=== PATIENT | female | born 1995 | race Caucasian/White ===

== ENCOUNTER → 2019-03-26 | Outpatient (CLI) | payer OTHER ==
[~2019-03-26] MED LIST: AZAT50TA2 PO; BIOT1TAB PO; D 50CAP PO; ESCI10TA2 PO; HYDR200T3 PO; NAPR-885 PO; OXYC-517 PO; PANT40TA3 PO
--- NOTE | 2019-03-26 11:40 | PFTRPT ---
Height: 65.00 Inches Weight: 241.00 Lbs BSA: 2.14 Diagnosis: LYMPHOMA DATE OF PROCEDURE: 03/26/2019 ORDERED BY: Dr. Lupe Gibson Spirometry: Pre and post bronchodilator study of excellent technical quality. Forced vital capacity reduced. FEV1 in proportion. Obstructive index is, therefore, normal. Flow Volume Loop: Expiratory limb of the flow volume loop does suggest some nonspecific flow rate limitation. No bronchodilator response identified. Lung Volumes: Total lung capacity mildly reduced. Residual volume suggests a degree of air trapping concomitantly. Diffusing Capacity: Diffusing capacity, although reduced, is appropriate for alveolar volume. Hemoglobin: No hemoglobin available for correction. Airway Mechanics: Airway resistance and conductance are normal. IMPRESSION: Mild restrictive ventilatory impairment with concomitant air trapping. Please correlate clinically. MTDD
--- NOTE | 2019-03-27 08:17 | ECHO ---
DATE OF SERVICE: 03/26/2019 DATE OF : 1995 AGE: 23 REFERRING PROVIDER: Dr. Lupe Gibson PATIENT LOCATION: Outpatient. REASON FOR THE ECHOCARDIOGRAM: Chemotherapy drug monitoring. History of Hodgkin's lymphoma. 2D MEASUREMENTS: IVS - 1.0 cm LV - 4.7 cm LVPW - 1.1 cm LA - 3.6 cm Aorta - 2.6 cm DOPPLER MEASUREMENTS: Peak velocity across the aortic valve 1.6 m/s Peak velocity across the LVOT 1.1 m/s Peak gradient across the aortic valve 10 mmHg Mean gradient across the aortic valve 5 mmHg Mitral E 1.3 Mitral A 0.67 with a ratio of 2.1 Maximum tricuspid valve velocity 2.5 m/s 2D COMMENTS: 1. Normal left ventricular size, wall thickness, and normal global left ventricular systolic function. The estimated ventricular systolic ejection fraction is 60-65%. 2. Normal left atrium. Normal right atrium and right ventricle. 3. The atrial septum appeared to be normal without evidence of defect or shunt. 4. Normal aortic root. 5. No pericardial effusion seen. 6. Minimally calcified aortic valve with normal leaflet excursion. Mildly calcified mitral annulus with normal anterior mitral valve leaflet motion. Normal tricuspid valve and pulmonic valve. The proximal pulmonary artery branches also appear to be normal. 7. The inferior vena cava was not well visualized. Doppler, it detects trace aortic radiation, trace mitral regurgitation, mild tricuspid radiation, and trace pulmonic regurgitation. The calculated pulmonary artery systolic pressure varies between 30-40 mmHg. Assessment of the left ventricular diastolic function appeared to be normal. IMPRESSION: 1. Normal global left ventricular systolic and diastolic function. 2. Aortic valve sclerosis with trace aortic radiation and trivial aortic stenosis. 3. Mitral annulus calcification with trace mitral regurgitation. 4. Mild tricuspid regurgitation with mild pulmonary hypertension. 5. Trace pulmonic regurgitation. 6. The GLS score was reported to be 19.8%, normal.
== END ==
LOC: M CARPUL 10:47
PROVIDERS: ATTEND Internal Medicine Medical Oncology
DX: C81.90 Hodgkin lymphoma, unspecified, unspecified site (principal)

== ENCOUNTER → 2019-04-02 | Outpatient (CLI) | payer OTHER ==
[~2019-04-02] MED LIST changes: +LIDOCAINE 1% MDV 20ML VIAL As Ordered ONE; +LIDOCAINE 2% MDV 20 ML VIAL As Ordered ONE; +MIDAZOLAM INJ 2 MG/2 ML VIAL (J2250) As Ordered ONE; +ceFAZolin 1GM INJ (J0690 PER 500MG) As Ordered ONE; +diphenhydrAMINE INJ 50MG/ML VIAL (J1200) As Ordered ONE; +fentaNYL 100 MCG/2 ML INJECTION (J3010) As Ordered ONE
--- NOTE | 2019-04-02 09:32 | IPNPDOC ---
Text Note Date of Service The patient was seen on 04/02/19. NOTE I reviewed the H& P from 04/01 and saw the patient. No significant interval change. Pre op diagnosis: lymphoma procedure: port ASA II Malampatti II ISATU: NO problems with sedation: NO NPO: yes Plan: port placement under moderate sedation. VS,Fishbone, I+O VS, Fishbone, I+O Vital Signs Date Time Temp Pulse Resp B/P (MAP) Pulse Ox O2 Delivery O2 Flow Rate FiO2 04/02/19 08:35 97.3 70 16 99 CL ALVAREZ MD Apr 02, 2019 09:32
--- NOTE | 2019-04-02 11:02 | POST-OPPD ---
Postoperative Procedure Note Date Of Procedure: Apr 02, 2019 Time Of Procedure: 11:01 PREOPERATIVE DIAGNOSIS: lymphoma POSTOPERATIVE DIAGNOSIS: lymphoma FINDINGS: patent right IJ PROCEDURE: right IJ port placed. ready to use SURGEON: Lucero ANESTHESIA: moderate sedation ESTIMATED BLOOD LOSS: < 5 ml COMPLICATIONS: none POSTOPERATIVE CONDITION: stable CL ALVAREZ MD Apr 02, 2019 11:02
[2019-04-02 12:47] VITALS: BP 110/62
--- NOTE | 2019-04-02 14:39 | REP ---
IR Ultrasound and fluoroscopy-guided port placement. IR Ultrasound of the neck. IR Moderate sedation. Clinical information: Lymphoma. Physician: Dr. Barker. Procedure: The patient was advised of the benefits, risks, and alternatives of the procedure and informed consent was obtained. A time-out was performed with verification of the patient's name, MRN, site of procedure and type of procedure to be performed. The patient was positioned in the supine position on the angiographic table. The site was prepped and draped in the usual sterile fashion. Moderate sedation was performed by the physician including the presence of an independent trained observer who assisted and monitored the patient's level of consciousness and physiologic status. Following the administration of fentanyl and Versed, the physician spent 45 minutes of continuous face to face time with the patient. Ultrasound of the neck reveals a patent and compressible right internal jugular vein. A business intelligence architect radiograph reveals mediastinal fullness. The neck and anterior chest wall were anesthetized with lidocaine. The right internal jugular vein was accessed using a microintroducer needle by a lateral approach. An 0018 wire was advanced into the superior vena cava, the needle was removed and a microsheath was placed. An Amplatz wire was then passed into the inferior vena cava. An incision at the internal jugular vein access site and anterior chest wall were made using a scalpel. An incision was made at the anterior chest wall. A small pocket was created using a combination of blunt and sharp dissection. A tunneling device was then used to pass the catheter from the pocket to the neck puncture site. An 8-Marshallese Angiodynamics low profile Smart power port was then positioned in the pocket. The catheter was then measured and cut. The introducer sheath was exchanged for a peel-away sheath. The catheter was passed through the peel-away sheath into the internal jugular vein and the peel-away sheath was removed. The port tip was positioned at right atrium. The port was then accessed with a Kee needle. The port flushes and aspirates well. The puncture site in the neck was closed. The chest wall incision was then closed with 2-0 Vicryl and 4-0 Monocryl. Glue and Steri-Strips were applied. A sterile dressing was then applied. The patient tolerated the procedure well and was returned to the PRU in stable condition. Estimated blood loss: <5 ml. Complications: None. Conclusion: 1. Successful placement of an 8-Marshallese angio dynamics low profile Smart power port via the right internal jugular vein. The port is ready for immediate use. 2. Patient to follow up in IR clinic in 2 weeks. Thank you for this referral Electronically Signed by Randa Barker MD 04/02/2019 02:38 P
== END ==
LOC: M IRPRO 08:33
PROVIDERS: ATTEND Radiology Diagnostic Radiology
DX: C85.90 Non-Hodgkin lymphoma, unspecified, unspecified site (principal)

== ENCOUNTER → 2019-04-22 | Outpatient (POV) | payer OTHER ==
[~2019-04-22] VITALS: Ht 165.1 cm; Wt 109.0 kg
[~2019-04-22] MED LIST changes: -LIDOCAINE 1% MDV 20ML VIAL As Ordered ONE; -LIDOCAINE 2% MDV 20 ML VIAL As Ordered ONE; -MIDAZOLAM INJ 2 MG/2 ML VIAL (J2250) As Ordered ONE; -ceFAZolin 1GM INJ (J0690 PER 500MG) As Ordered ONE; -diphenhydrAMINE INJ 50MG/ML VIAL (J1200) As Ordered ONE; -fentaNYL 100 MCG/2 ML INJECTION (J3010) As Ordered ONE
[2019-04-22 08:37] VITALS: BP 124/81
--- NOTE | 2019-04-22 13:52 | IPNPDOC ---
Text Note Date of Service The patient was seen on 04/22/19. NOTE 2 week follow-up post right chest port placement. Patient doing well. Had chemotherapy last week after which she felt exhausted. Port worked well for chemotherapy. No pain, tenderness or drainage from site. No fevers. On examination: Port site looks almost healed. No redness, no discharge. Impression: Port site healing well. No further follow-up unless initiated by patient. Thank you for this referral. VS,Becki, I+O VS, Deannae, I+O Vital Signs Date Time Temp Pulse Resp B/P (MAP) Pulse Ox O2 Delivery O2 Flow Rate FiO2 04/22/19 08:37 97.0 87 16 124/81 (95) 99 CL ALVAREZ MD Apr 22, 2019 13:52
== END ==
LOC: M IRPOV 08:29
PROVIDERS: ATTEND Radiology Diagnostic Radiology
DX: Z45.2 Encounter for adjustment and management of vascular access device (principal)

== ENCOUNTER 2019-05-09 21:08 | Emergency (ER) | payer OTHER ==
[~2019-05-09] VITALS: Ht 165.1 cm; Wt 108.2 kg
[~2019-05-09 21:08] MED LIST changes: +OLAN10TA2 PO; +ONDA8TAB7 PO; +PROC10TA4 PO
[2019-05-09] MEDS ORDERED: NS 1,000 ML IV ONE (21:45)
[2019-05-09] MEDS ORDERED: PROMETHAZINE INJ 25 MG/ML VIAL (J2550) IV ONE (21:45)
[2019-05-09] MEDS ORDERED: ONDANSETRON 4MG/2ML VIAL (J2405) IV ONE ×2 (21:45→23:45)
[2019-05-09] MEDS ORDERED: SODIUM CHLORIDE 0.9% INJ 10 ML SYR IV SCH (21:49)
[2019-05-09 22:31] LABS: BASO % 0.6 % (0.0-1.0); EOS % 0.6 % (0.0-3.0); HEMATOCRIT 29.7 % (36.0-47.0); HEMOGLOBIN 9.8 g/dl (12.0-15.5); LYMPH # 0.8 10^3/uL (1.5-6.5); LYMPH % 44.7 % (24.0-44.0); MEAN CORPUSCULAR HEMOGLOBIN 27.7 pg (27.0-33.0); MEAN CORPUSCULAR VOLUME 83.9 fl (80.0-96.0); MONO # 0.6 10^3/uL (0.0-0.8); MONO % 33.5 % (0.0-5.0); NEUTROPHILS % 19.4 % (36.0-66.0); PLATELET COUNT, AUTOMATED 385 10^3/uL (150-450); RED BLOOD COUNT 3.54 10^6/uL (4.00-5.40)
[2019-05-09 22:51] LABS: ALBUMIN 3.8 GM/DL (3.2-5.2); ALT/SGPT 62 U/L (12-78); BILIRUBIN,DIRECT 0.4 MG/DL (0.0-0.2); BILIRUBIN,TOTAL 0.6 MG/DL (0.2-1.0); BLOOD UREA NITROGEN 6 MG/DL (7-18); CALCIUM LEVEL 8.9 MG/DL (8.5-10.1); CARBON DIOXIDE LEVEL 29 MEQ/L (21-32); CHLORIDE LEVEL 104 MEQ/L (98-107); CREATININE FOR GFR 0.64 MG/DL (0.55-1.30); GLOMERULAR FILTRATION RATE > 60.0 (>60); GLUCOSE, FASTING 94 MG/DL (70-100); POTASSIUM SERUM 3.7 MEQ/L (3.5-5.1); SODIUM LEVEL 141 MEQ/L (136-145); TOTAL PROTEIN 6.5 GM/DL (6.4-8.2)
[2019-05-09 22:59] LABS: NEUTROPHILS # 0.3 10^3/uL (1.8-7.7); WHITE BLOOD COUNT 1.7 10^3/uL (4.0-10.0)
[2019-05-09 23:47] VITALS: BP 129/85
[2019-05-29] MEDS ORDERED: MAGICMW SS (08:50)
== END 2019-05-09 23:55 | disposition home or self-care (01) ==
LOC: M ED 21:08
DX: R11.2 Nausea with vomiting, unspecified (principal); Z79.899 Other long term (current) drug therapy
CPT/HCPCS: 80048; 80076; 85025; 96374; 96375; 96376; 99283; J2405

== ENCOUNTER 2019-05-24 14:51 | Emergency (ER) | payer OTHER ==
[~2019-05-24] VITALS: Ht 165.1 cm; Wt 100.0 kg
[~2019-05-24 14:51] MED LIST changes: +ONDA8TAB10 PO; -ONDA8TAB7 PO
[2019-05-24] MEDS ORDERED: NS 1,000 ML IV ONE (15:15)
[2019-05-24] MEDS ORDERED: ONDANSETRON 4MG/2ML VIAL (J2405) IV ONE ×2 (15:15→16:30)
[2019-05-24 16:04] LABS: HEMATOCRIT 29.9 % (36.0-47.0); HEMOGLOBIN 9.8 g/dl (12.0-15.5); MEAN CORPUSCULAR HEMOGLOBIN 28.4 pg (27.0-33.0); MEAN CORPUSCULAR HGB CONC 32.8 g/dl (32.0-36.5); MEAN CORPUSCULAR VOLUME 86.7 fl (80.0-96.0); PLATELET COUNT, AUTOMATED 424 10^3/uL (150-450); RED BLOOD COUNT 3.45 10^6/uL (4.00-5.40); WHITE BLOOD COUNT 4.5 10^3/uL (4.0-10.0)
[2019-05-24 16:27] LABS: ALBUMIN 3.7 GM/DL (3.2-5.2); ALT/SGPT 46 U/L (12-78); BILIRUBIN,DIRECT 0.3 MG/DL (0.0-0.2); BILIRUBIN,TOTAL 0.5 MG/DL (0.2-1.0); BLOOD UREA NITROGEN 6 MG/DL (7-18); CALCIUM LEVEL 8.9 MG/DL (8.5-10.1); CARBON DIOXIDE LEVEL 24 MEQ/L (21-32); CHLORIDE LEVEL 103 MEQ/L (98-107); CREATININE FOR GFR 0.59 MG/DL (0.55-1.30); GLOMERULAR FILTRATION RATE > 60.0 (>60); GLUCOSE, FASTING 74 MG/DL (70-100); LIPASE 61 U/L (73-393); POTASSIUM SERUM 3.5 MEQ/L (3.5-5.1); SODIUM LEVEL 138 MEQ/L (136-145); TOTAL PROTEIN 6.6 GM/DL (6.4-8.2)
[2019-05-24 16:31] LABS: HCG, SERUM QUALITATIVE NEGATIVE (NEGATIVE)
[2019-05-24 16:41] LABS: ATYPICAL LYMPH 2 % (0-5); LYMPHOCYTES 37 % (16-44); MONOCYTES 18 % (0-5); NEUTROPHILS 36 % (28-66)
[2019-05-24 16:42] LABS: ANISOCYTOSIS 1+; OVALOCYTES 1+; PLATELET ESTIMATE INCREASED (NORMAL); POIKILOCYTOSIS 1+; TEAR DROP CELLS 1+
[2019-05-24 18:36] VITALS: BP 124/76
[2019-05-24] MEDS ORDERED: SODIUM CHLORIDE 0.9% INJ 10 ML SYR IV PRN (19:00)
[2019-05-29] MEDS ORDERED: MAGICMW SS (08:50)
[2019-07-10] MEDS ORDERED: FLUC100T PO (08:14)
[2019-07-29] MEDS ORDERED: SULF1TAB93 PO (10:08)
[2019-07-31] MEDS ORDERED: VALA500T5 PO (08:14)
[2019-08-04] MEDS ORDERED: CIPR500S PO (09:00)
[2019-08-06] MEDS ORDERED: OLAN10TA2 PO (10:15)
[2019-08-06] MEDS ORDERED: ONDA8TAB10 PO (10:15)
[2019-08-12] MEDS ORDERED: PROC10TA4 PO (13:05)
[2019-08-13] MEDS ORDERED: PROC10TA4 PO (15:22)
[2019-08-29] MEDS ORDERED: MACR100C43 PO (09:14)
== END 2019-05-24 19:05 | disposition home or self-care (01) ==
LOC: M ED 14:51
DX: R11.2 Nausea with vomiting, unspecified (principal); K21.9 Gastro-esophageal reflux disease without esophagitis; M32.9 Systemic lupus erythematosus, unspecified; F33.9 Major depressive disorder, recurrent, unspecified; C81.90 Hodgkin lymphoma, unspecified, unspecified site; Z79.899 Other long term (current) drug therapy
CPT/HCPCS: 80048; 80076; 83690; 84703; 85025; 93041; 96361; 96374; 96376; 99285; J2405

== ENCOUNTER → 2019-06-03 | Outpatient (CLI) | payer OTHER ==
[~2019-06-03] MED LIST changes: +MAGICMW SS; -ONDA8TAB10 PO; +ONDA8TAB7 PO
--- NOTE | 2019-06-03 18:06 | REP ---
PET/CT: History: Restaging Hodgkin's lymphoma. Restaging, response to treatment after two cycles of chemotherapy. Comparisons: Comparison PET-CT study April 01, 2019. TECHNIQUE: 49 minutes following the intravenous injection of a 9.05 mCi dose of F-18 FDG, three-dimensional PET scintigraphy is acquired from the skull base to the proximal thighs. Triplanar noncontrast CT scanning is acquired through the same anatomic range for attenuation correction, and image registration with scan parameters optimized to minimize radiation exposure to the patient. PET scintigraphy and CT datasets were fused and displayed on a workstation with multiplanar and projection display capability. PET/CT Findings: Today's PET CT images demonstrate rebound diffuse marrow uptake throughout the axial skeleton. This is a normal finding post chemotherapy. No focal area of increased uptake or bony destructive lesion is seen. The previously noted large hypermetabolic mediastinal mass is dramatically improved in size and is no longer hypermetabolic. Maximum standard uptake value is 3.43 today, previously 17.7. No new mediastinal or hilar adenopathy is seen. No axillary or supraclavicular or neck adenopathy is seen. In the abdomen and pelvis there is normal distribution of hepatic, splenic, gastrointestinal, and genitourinary FDG tracer. No abnormal hypermetabolic uptake is seen in the abdomen or pelvis. An IUD is noted. The previously noted hypermetabolic normal-sized left femoral lymph node is no longer metabolically active. No new hypermetabolic focus is seen. Impression: Rebound marrow phenomenon. Much improved mediastinal mass no longer hypermetabolic. No new hypermetabolic uptake is seen. Electronically Signed by August Merrill MD 06/03/2019 06:24 P
== END ==
LOC: M PLARAD 14:16
PROVIDERS: ATTEND Internal Medicine Medical Oncology
DX: C81.92 Hodgkin lymphoma, unspecified, intrathoracic lymph nodes (principal)
CPT/HCPCS: 78815; A9552

== ENCOUNTER → 2019-06-25 | Outpatient (CLI) | payer OTHER ==
[~2019-06-25] MED LIST changes: +GASTROGRAFIN SOLUTION 30ML (Q9963) As Ordered ONE; +ISOVUE-370 76% 100ML VIAL (Q9967) As Ordered ONE
--- NOTE | 2019-06-25 13:46 | REP ---
CT ABDOMEN AND PELVIS WITH IV AND ORAL CONTRAST: HISTORY: Purulent umbilical drainage and tenderness. Rule out abdominal periumbilical abscess. The patient has a history of Hodgkin's lymphoma. Treated with chemotherapy. CT CONTRAST DOSE: 100 mL of intravenous Isovue [address] FINDINGS: Preliminary sandfill operator surface radiograph demonstrates an unremarkable bowel gas pattern. An Lfztyq-[id number]-Qbvh is seen in place which was used for the contrast injection. An IUD is noted the pelvis. The lung bases are clear. There is mild diffuse fatty infiltration of the liver. No focal liver lesion is seen. Spleen is unremarkable. No abnormality is noted in the gallbladder. No adrenal lesion is seen. The pancreas is normal in appearance. No retroperitoneal mass or adenopathy is seen. Small and large bowel loops are normal in the abdomen and pelvis. A normal appendix is seen relatively low in the right pelvis. Urinary bladder is empty but appears intact. No uterine abnormality is observed. A fairly atrophic uterus is seen containing the IUD tipped somewhat to the left. No ovarian abnormality is seen. Imaging through the anterior abdominal wall and umbilicus shows no evidence of abdominal wall or umbilical abscess. There is no significant inflammation. No hernia or abnormal fluid collection is seen. IMPRESSION: IUD in the uterus. Mild diffuse fatty infiltration of the liver. Otherwise normal CT study abdomen and pelvis with IV and oral contrast. No evidence of abdominal wall abscess inflammatory change or abnormal fluid collection. Electronically Signed by August Merrill MD 06/25/2019 01:50 P
== END ==
LOC: M RAD 10:49
PROVIDERS: ATTEND Internal Medicine Medical Oncology
DX: R10.9 Unspecified abdominal pain (principal); K76.0 Fatty (change of) liver, not elsewhere classified
CPT/HCPCS: 74177; Q9963; Q9967

== ENCOUNTER → 2019-06-26 | Outpatient (CLI) | payer OTHER ==
[~2019-06-26] MED LIST changes: +FLUC100T PO; -GASTROGRAFIN SOLUTION 30ML (Q9963) As Ordered ONE
--- NOTE | 2019-06-26 14:18 | REP ---
CT pulmonary angiogram: With IV contrast. History: Shortness of breath and dyspnea. Rule out pulmonary embolism. No comparison chest CT. History of Hodgkin's lymphoma. Comparison studies: Comparison is made with PET/CT images from April 01, 2019 and June 03, 2019. Contrast dose: 75 mL of Isovue [address] technique: Helical scanning is acquired and overlapping 1.5 mm and contiguous 3 mm axial images are reformatted. In addition, maximum intensity projection and multiplanar re-formation images are generated in sagittal and coronal imaging projections. CT pulmonary angiographic findings: There is good opacification of the pulmonary arterial tree. There is no CT evidence of pulmonary embolism. There is no evidence of aortic aneurysm or dissection. There is a small amount of soft tissue density remaining in the anterior mediastinal fat to the left of midline. This area is somewhat ill-defined but measures 3.2 x 1.8 x 2.0 cm in diameter. No hilar adenopathy is seen. No extrathoracic adenopathy is observed. There is a right sided Ucsvfe-U-Vhze catheter noted. The lung pete are clear. No pleural or pericardial effusion is seen. There is moderate diffuse fatty infiltration of the liver. No adrenal lesion is seen. Impression: Diffuse fatty infiltration of the liver. Otherwise negative CT pulmonary angiogram. There is a 3.2 x 1.8 x 2.0 cm ill-defined soft tissue density in the anterior mediastinal fat, much improved from its appearance on April 01, 2019. There is no CT evidence of pulmonary embolus. Electronically Signed by August Merrill MD 06/26/2019 06:25 P
== END ==
LOC: M RAD 08:13
PROVIDERS: ATTEND Internal Medicine Medical Oncology
DX: C81.90 Hodgkin lymphoma, unspecified, unspecified site (principal); K76.0 Fatty (change of) liver, not elsewhere classified
CPT/HCPCS: 71275; Q9967

== ENCOUNTER → 2019-07-12 | Outpatient (CLI) | payer OTHER ==
[~2019-07-12] MED LIST changes: -ISOVUE-370 76% 100ML VIAL (Q9967) As Ordered ONE
--- NOTE | 2019-07-13 14:33 | ECHO ---
DATE OF PROCEDURE: 07/12/2019 DATE OF : 1995 AGE: 23 GENDER: Female HEIGHT: 65 inches WEIGHT: 201 pounds BODY SURFACE AREA: 1.89 m2 OUTPATIENT: REFERRING PHYSICIAN: Dr. Lupe Gibson INDICATION: Hodgkin disease/potentially cardiotoxic chemotherapy. MEASUREMENTS: 2-D Measurements: RV: 3.6 cm LV: 4.2 cm Septum: 1.0 cm Posterior wall: 1.0 cm Aortic root: 2.6 cm LA: 3.1 cm LVEF: 60% Doppler Measurements: AV: 1.03 m/s LVOT: 0.88 m/s LVOT diameter: 2.0 cm MV: E 65, A 57, EA ratio 1.1 Early mitral deceleration time: 170 ms E prime medial: 6.5 A prime medial: 5.4 E prime lateral: 8.7 Average E/E prime ratio: 8.3 PCWP: 12.2 mmHg PV: 0.75 m/s Pulmonary artery acceleration time: 116 ms RVSP: 29 mmHg IVC: 1.3 cm COMMENTS: Normal sinus rhythm without intraventricular conduction disturbance. Technically challenging study in light of the patient's body habitus but diagnostically useful information was still obtained. M-mode and two-dimensional echocardiography was performed with pulsed, continuous wave, color flow and tissue Doppler studies. Normal left ventricular size, wall thickness and wall motion. Normal left atrial size and Doppler assessment of LV diastolic function and estimated mean left atrial pressure. Normal right heart chamber sizes and motion and estimated pulmonary arterial pressure. Normal inferior vena caval size and collapse against an elevated central venous pressure. Normal appearing and functioning valvular structures. Normal aortic root size. No apparent intracardiac mass or pericardial effusion.
== END ==
LOC: M CARPUL 10:58
PROVIDERS: ATTEND Internal Medicine Medical Oncology
DX: R06.00 Dyspnea, unspecified (principal); C81.90 Hodgkin lymphoma, unspecified, unspecified site

== ENCOUNTER → 2019-10-28 | Outpatient (CLI) | payer OTHER ==
[~2019-10-28] MED LIST changes: +CIPR500S PO; +MACR100C43 PO; +ONDA8TAB10 PO; -ONDA8TAB7 PO; +SULF1TAB93 PO; +VALA500T5 PO
--- NOTE | 2019-10-28 13:30 | REP ---
PET/CT: History: Restaging Hodgkin's lymphoma. Comparisons: Comparison PET/CT study June 03, 2019. There is a also comparison PET/CT study from April 01, 2019. TECHNIQUE: 71 minutes following the intravenous injection of a 7.33 mCi dose of F-18 FDG, three-dimensional PET scintigraphy is acquired from the skull base to the proximal thighs. Triplanar noncontrast CT scanning is acquired through the same anatomic range for attenuation correction, and image registration with scan parameters optimized to minimize radiation exposure to the patient. PET scintigraphy and CT datasets were fused and displayed on a workstation with multiplanar and projection display capability. PET/CT Findings: There is hypermetabolic uptake in the several small bilateral posterior and anterior cervical lymph nodes in the neck. Maximum standard uptake value ranges from 2.82 to 5.77 in the neck. There is borderline metabolic activity in normal-sized lymph nodes in the axilla, one on each side. Maximum standard uptake value 2.33 on the right and 1.99 on the left. There is recurrent hypermetabolic uptake in the a single inguinal lymph node on the left with maximum SUV 11.40. There are two hypermetabolic small nodes on the right maximum SUV value 6.47 and 2.84. There is a normal size mildly hypermetabolic node in the left external iliac chain with maximum SUV value 2.45. No intra-abdominal hypermetabolic uptake is seen. No abnormal pulmonary parenchymal hypermetabolic uptake is seen. No abnormal hilar or mediastinal hypermetabolic uptake is noted. There is artifactual uptake in the tubing associated with the injected Ujvsvi-N-Ohji catheter at the anterior chest wall. Impression: There is recurrent dimitri hypermetabolic uptake in bilateral inguinal nodes and in bilateral cervical lymph nodes. Equivocal uptake is seen in the axillary lymph nodes. No abnormal hypermetabolic uptake is seen within the chest or within the abdomen. Electronically Signed by August Merrill MD 10/28/2019 03:44 P
== END ==
LOC: M PLARAD 08:10
PROVIDERS: ATTEND Internal Medicine Medical Oncology
DX: C81.99 Hodgkin lymphoma, unspecified, extranodal and solid organ sites (principal)
CPT/HCPCS: 78815; A9552

== ENCOUNTER → 2020-01-27 | Outpatient (CLI) | payer OTHER ==
--- NOTE | 2020-01-27 12:35 | REP ---
PET/CT: HISTORY: Restaging Hodgkin's lymphoma. Mediastinal, axillary, and femoral lymph nodes. Stage IV B Hodgkin's lymphoma, nodular sclerosing type. Status post chemotherapy. COMPARISONS: Comparison PET/CT studies are from October 28, 2019, June 03, 2019, and April 01, 2019. TECHNIQUE: 47 minutes following the intravenous injection of a 8.28 mCi dose of F-18 FDG, three-dimensional PET scintigraphy is acquired from the skull base to the proximal thighs. Triplanar noncontrast CT scanning is acquired through the same anatomic range for attenuation correction, and image registration with scan parameters optimized to minimize radiation exposure to the patient. PET scintigraphy and CT datasets were fused and displayed on a workstation with multiplanar and projection display capability. PET/CT FINDINGS: There are scattered areas of skeletal muscle normal variant uptake about the head and neck. In addition, however, there is fairly prominent uptake in the tonsillar pillars bilaterally, maximum SUV value on the right and left tonsil are 13.2 and 10.9 respectively. This is of uncertain significance. There is however mildly hypermetabolic dimitri uptake in the anterior cervical lymph node chain with two lymph nodes on the left and three on the right. Maximum standard uptake value in these is mildly hypermetabolic ranging from 2.49 to 7.05. The most avid anterior cervical node is on the left. The most avid cervical node on the right has maximum standard uptake value of 6.42. This is also in the anterior cervical chain. There are small mildly hypermetabolic lymph nodes in each axilla. Maximum SUV value 2.95 on the right and 3.35 on the left. There is mild soft tissue thickening in the anterior mediastinal fat today compared to the prior PET-CT study. This is also mildly avid with maximum standard uptake value 4.43. There is the normal sized right internal iliac lymph node showing uptake mildly hypermetabolic, 3.42. There are three mildly hypermetabolic normal-sized lymph nodes in the left inguinal region with maximum standard uptake values ranging from 2.79-3.20. No other abnormal hypermetabolic uptake is seen. No abnormal hypermetabolic uptake is seen in the liver or spleen. No retroperitoneal dimitri uptake is seen. Reference organ uptake is as follows: Hepatic parenchymal uptake SUV 3.93, mediastinal blood pool uptake 2.26. Accordingly, on the Deauville 5-point scale, the cervical dimitri uptake is category 4, higher than liver. IMPRESSION: Hypermetabolic dimitri uptake is again seen in cervical lymph nodes, possibly in the tonsillar pillars, bilateral axillary lymph nodes, left inguinal and right internal iliac nodes, and in the anterior mediastinum. Electronically Signed by August Merrill MD 01/27/2020 06:47 P
== END ==
LOC: M PLARAD 08:32
PROVIDERS: ATTEND Internal Medicine Medical Oncology
DX: C81.98 Hodgkin lymphoma, unspecified, lymph nodes of multiple sites (principal)
CPT/HCPCS: 78815; A9552

== ENCOUNTER → 2020-04-15 | Outpatient (CLI) | payer OTHER ==
[~2020-04-15] MED LIST changes: +GASTROGRAFIN SOLUTION 30ML (Q9963) As Ordered ONE; +ISOVUE-370 76% 100ML VIAL As Ordered ONE; +PANT40TA29 PO; -PANT40TA3 PO
--- NOTE | 2020-06-04 11:06 | REP ---
CT ABDOMEN AND PELVIS WITH IV AND ORAL CONTRAST This report was delayed due to a malware attack on this facility. HISTORY: Hodgkin's lymphoma with residual lymphadenopathy after treatment. Surveillance restaging. COMPARISON: CT study is from 06/25/2019. CT CONTRAST DOSE: 100 mL of intravenous Isovue-[address] FINDINGS: The lung bases are clear on axial CT images. Liver is homogeneous in texture and normal in size. There is opaque material layering in the dependent portion of the gallbladder consistent with gravel-like calculi or mineral-containing sludge. The spleen appears normal in overall size measuring 12.8 cm in greatest diameter. No focal splenic lesion is seen. Normal adrenal glands are observed. No renal mass or hydronephrosis is seen on either side. No abnormality noted in the pancreas. There are scattered aortocaval and bilateral iliac lymph nodes, which are all still normal in short axis dimension, but slightly more prominent in size than on 06/25/2019. There is a 1.5 x 0.7 x 1.8 cm node along the left external iliac artery, which appears larger than previously. I cannot exclude early developing lymphadenopathy. Uterus is tipped to the left and contains IUD. The uterus is somewhat atrophic. Small and large bowel loops are unremarkable. IMPRESSION: Several retroperitoneal and iliac lymph nodes are a little larger than previous, although still normal in size criteria. Intrauterine device (IUD) in place in the uterus. MTDD
--- NOTE | 2020-06-04 11:07 | REP ---
CT OF THE CHEST WITH IV CONTRAST DATE: 04/15/2020 NOTE: Delay in reporting results from malfunction of the hospital computer system because of a malware attack. HISTORY: Patient has a history of Hodgkin lymphoma. COMPARISON: Chest CT with IV contrast dated 06/26/[address] accompanying the PET scan of 04/01/2019. FINDINGS: On the 04/01/2019 PET scan, there was a large soft tissue mass in the anterior mediastinum. On the chest CT of 06/26/2016, this anterior mediastinal mass had significantly decreased in size measuring 3.2 x 1.7 cm. On the study today, this anterior mediastinal mass measures 3.5 x 3.3 cm and has slightly increased from 06/26/2019. On the study today, it assumes a somewhat triangular shape suggestive of thymic tissue. There is no unusual enhancement within this mass. There is no mediastinal or hilar lymph node enlargement. There are borderline enlarged axillary nodes; however, these are unchanged from the comparison studies. There are numerous axillary nodes bilaterally that appear increased in their number from the comparison studies. There are no lung masses or nodules. There are no infiltrates or pleural effusions. The thoracic aorta is unremarkable. Cardiac size is normal. There is a right IJ central venous catheter with the tip in the right atrium, in satisfactory location. This is unchanged. The visualized upper abdominal contents are unremarkable. Probable tiny calculi versus sludge in the gallbladder neck. The spleen measures 12 cm in AP diameter and is not enlarged. Adrenals and visualized renal upper poles are unremarkable. Pancreas is unremarkable. IMPRESSION: Patient's known mediastinal mass is as described in the body of the report. There are numerous axillary nodes bilaterally, appearing increased in number from the prior studies. They are borderline enlarged axillary nodes, not significantly changed in size. MTDD
== END ==
LOC: M RAD 16:30
PROVIDERS: ATTEND Internal Medicine Medical Oncology
DX: R59.0 Localized enlarged lymph nodes (principal); Z85.71 Personal history of Hodgkin lymphoma
CPT/HCPCS: 70491; 71260; 74177; J1642; Q9963; Q9967

== ENCOUNTER → 2021-03-22 | Outpatient (POV) | payer OTHER ==
[~2021-03-22] VITALS: Ht 165.1 cm; Wt 87.7 kg
[~2021-03-22] MED LIST changes: +BACTDSTA PO; +ESCI10TA16 PO; -ESCI10TA2 PO; -GASTROGRAFIN SOLUTION 30ML (Q9963) As Ordered ONE; -ISOVUE-370 76% 100ML VIAL As Ordered ONE; -OLAN10TA2 PO; +OLAN1TAB20 PO; -SULF1TAB93 PO
[2021-03-22 12:40] VITALS: BP 130/70
--- NOTE | 2021-03-23 14:50 | IRPN ---
[facility] IR Progress Note IR Progress Note DATE: Mar 22, 2021 FOLLOW-UP: 25-year-old female with lupus and lymphoma, had a port placed by me in March 2019. Her last chemotherapy was in September 2019. Port worked well and she's completed chemotherapy with no further treatment planned. Patient would like her port removed. She doesn't get it flushed regularly. ON EXAMINATION: Healed right chest port. No overlying cellulitis. IMPRESSION: Patient with right-sided chest port placed in 2018. Patient would like her port removed. We discussed the risks and benefits of the procedure and patient is willing to proceed. We'll schedule the patient for right chest port removal. Thank you for this referral Allergies Coded Allergies: No Known Drug Allergies (Verified Allergy, Unknown, 03/25/19) VS,Fishbone, I+O VS, Fishbone, I+O Vital Signs Date Time Temp Pulse Resp B/P (MAP) Pulse Ox O2 Delivery O2 Flow Rate FiO2 03/22/21 12:40 97.9 64 20 130/70 (90) 98 CL ALVAREZ MD Mar 23, 2021 14:50
== END ==
LOC: M IRPOV 12:19
PROVIDERS: ATTEND Radiology Diagnostic Radiology
DX: Z45.2 Encounter for adjustment and management of vascular access device (principal); C85.90 Non-Hodgkin lymphoma, unspecified, unspecified site; M32.9 Systemic lupus erythematosus, unspecified; Z92.21 Personal history of antineoplastic chemotherapy

== ENCOUNTER → 2021-03-31 | Outpatient (CLI) | payer OTHER ==
[~2021-03-31] MED LIST changes: +MIDAZOLAM INJ 2MG/2ML VIAL (J2250 PER 1MG) As Ordered ONE; +NS 1,000 ML IV SCH; +ceFAZolin 2 GM/D5W 50 ML IV BAG (J0690 PER 500MG) As Ordered ONE; +ceFAZolin SOD 2 GM in IV 1 EA IV ONE; +diphenhydrAMINE 50MG/ML VIAL (J1200) As Ordered ONE; +fentaNYL 100 MCG/2 ML INJECTION (J3010) As Ordered ONE
--- NOTE | 2021-03-31 14:11 | IRHP ---
[facility] IR Pre-Procedure H & P General Date of Service: Mar 31, 2021 Procedure: Same Day Surgery Interval History and Physical I have seen the patient and reviewed last H & P performed within 30 days. There is no significant interval change. History of Present Illness Chief Complaint The patient is a 25-year-old female admitted with a reason for visit of C81.70. PRE-PROCEDURE DIAGNOSIS: Lymphoma. HEART: Normal rate. LUNGS: Normal breathing at rest. ASA Classification ASA Classification: II-Mild systemic disease Mallampati Score: II NPO: Yes Problems with prior sedation: No Obstructive Sleep Apnea: No Plan moderate sedation Allergies Coded Allergies: No Known Drug Allergies (Verified Allergy, Unknown, 03/25/19) Home Medications Scheduled Hydroxychloroquine Sulfate (Hydroxychloroquine Sulfate), 1 TAB PO BID, (Reported) Pantoprazole Sodium (Pantoprazole Sodium), 40 MG PO DAILY, (Reported) Valacyclovir HCl (Valacyclovir), 500 MG PO DAILY, (Reported) Scheduled PRN Prochlorperazine Maleate (Prochlorperazine Maleate), 10 MG PO Q8HP PRN for NAUSEA OR VOMITING Discontinued Medications Magic Mouthwash (First-Mouthwash Blm), 10 ML SS QID PRN for MUCOSITIS Discontinued Reason: Pt states not taking Olanzapine (Olanzapine), 10 MG PO DAILY PRN for SEVERE NAUSEA Discontinued Reason: Pt states not taking Ondansetron HCl (Ondansetron HCl), 8 MG PO Q6HP PRN for NAUSEA Discontinued Reason: PCP discontinued med VS, I&O, 24H, Fishbone Vital Signs/I&O Vital Signs Date Time Temp Pulse Resp B/P (MAP) Pulse Ox O2 Delivery O2 Flow Rate FiO2 03/31/21 13:45 96.9 74 18 100 Room Air CL ALVAREZ MD Mar 31, 2021 14:11
[2021-03-31 16:30] VITALS: BP 130/70
--- NOTE | 2021-04-05 08:53 | IRPON ---
IR Postoperative Note Date Of Procedure: Mar 31, 2021 Time Of Procedure: 16:00 IR Postoperative Note IR Port Removal / Explant. IR Moderate sedation. Clinical Information:Lymphoma. Treatment complete. Patient would like port removed. Physician: Dr. Barker Procedure: The patient was advised of the benefits, risks, and alternatives of the procedure and informed consent was obtained. A time out was performed with verification of the patient's name, MRN, site of procedure, and type of procedure to be performed. The patient was positioned in the supine position on the angiographic table. The site was prepped and draped in the usual sterile fashion. Moderate sedation was performed by the physician including the presence of an independent trained RN who assisted in monitoring the patient's level of consciousness and physiological status. Following the administration of fentanyl and Versed the physician spent 30 minutes of continuous [id number] time with the patient. A data keyer radiograph reveals a right sided port. The soft tissues overlying the port were anesthetized with lidocaine. An incision was made over the port using a 15 blade scalpel in the location of the prior incision. The catheter was then freed with blunt dissection and extracted. Pressure was applied to obtain hemostasis. The port was then freed with blunt dissection and subsequently removed. There were no signs of infection. After hemostasis was achieved, the incision was closed with interrupted deep 3-0 Vicryl sutures and subcuticular Monocryl suture followed by glue and steri-strips. The site was covered with a sterile dressing. The patient tolerated the procedure well and was returned to the PRU in stable condition. EBL:Less than 5 mL Complications:None. Conclusions: 1. Successful explant of a right-sided port. 2. No signs of infection. Thank you for this referral CL BARKER MD Apr 05, 2021 08:53
== END ==
LOC: M IRPRO 13:40
PROVIDERS: ATTEND Radiology Diagnostic Radiology
DX: Z45.2 Encounter for adjustment and management of vascular access device (principal); C81.70 Other Hodgkin lymphoma, unspecified site
CPT/HCPCS: 36590; 99152; J0690; J1200; J2250; J3010

== ENCOUNTER → 2021-04-19 | Outpatient (POV) | payer OTHER ==
[~2021-04-19] VITALS: Ht 165.1 cm; Wt 86.3 kg
[~2021-04-19] MED LIST changes: -MIDAZOLAM INJ 2MG/2ML VIAL (J2250 PER 1MG) As Ordered ONE; -NS 1,000 ML IV SCH; -ceFAZolin 2 GM/D5W 50 ML IV BAG (J0690 PER 500MG) As Ordered ONE; -ceFAZolin SOD 2 GM in IV 1 EA IV ONE; -diphenhydrAMINE 50MG/ML VIAL (J1200) As Ordered ONE; -fentaNYL 100 MCG/2 ML INJECTION (J3010) As Ordered ONE
[2021-04-19 08:35] VITALS: BP 115/69
--- NOTE | 2021-04-21 09:54 | IRPN ---
[facility] IR Progress Note IR Progress Note DATE: Apr 19, 2021 FOLLOW-UP: Patient is status post port removal. Patient reports port site is healing well. No pain, no fevers or discharge at site. ON EXAMINATION: Port site appears to be healing well. Wound and Steri-Strips are still in place. No redness, swelling or discharge at site. IMPRESSION: Doing well status post port removal. Steri-Strips will fall off by themselves. Patient may leave it uncovered. Thank you for this referral Allergies Coded Allergies: No Known Drug Allergies (Verified Allergy, Unknown, 03/25/19) VS,Fishbone, I+O VS, Fishbone, I+O Vital Signs Date Time Temp Pulse Resp B/P (MAP) Pulse Ox O2 Delivery O2 Flow Rate FiO2 04/19/21 08:35 97.0 66 20 115/69 (84) 100 Room Air CL ALVAREZ MD Apr 21, 2021 09:54
== END ==
LOC: M IRPOV 08:31
PROVIDERS: ATTEND Radiology Diagnostic Radiology
DX: Z45.2 Encounter for adjustment and management of vascular access device (principal)